=== PATIENT | male | born 1980 | race Caucasian/White ===

== ENCOUNTER → 2020-08-17 | Outpatient (CLI) | payer BC | LOC: HYPER 14:14 | PROVIDERS: ATTEND Emergency Medicine | DX: I70.221 Atherosclerosis of native arteries of extremities with rest pain, right leg (principal); I10 Essential (primary) hypertension; Z87.891 Personal history of nicotine dependence; Z79.82 Long term (current) use of aspirin ==

== ENCOUNTER → 2020-09-23 | Outpatient (CLI) | payer BC | LOC: HYPER 08:47 | PROVIDERS: ATTEND Emergency Medicine | DX: I70.221 Atherosclerosis of native arteries of extremities with rest pain, right leg (principal); S91.114A Laceration without foreign body of right lesser toe(s) without damage to nail, initial encounter; L84 Corns and callosities; I10 Essential (primary) hypertension; Z87.891 Personal history of nicotine dependence; Z79.82 Long term (current) use of aspirin; X58.XXXA Exposure to other specified factors, initial encounter; Y93.89 Activity, other specified; Y92.89 Other specified places as the place of occurrence of the external cause; Y99.8 Other external cause status ==